=== PATIENT | male | born 1960 | race Caucasian/White ===

== ENCOUNTER 2018-09-20 11:48 | Outpatient (REF) | payer SELFPAY ==
[2018-09-20 21:25] LABS: Anion Gap 7.9 mmol/L (3-11); BUN 27 mg/dL (7-18); CO2 29.1 mmol/L (21.0-32.0); CREATININE 0.98 mg/dL (0.70-1.30); Calcium 9.1 mg/dL (8.5-10.1); Chloride 104 mmol/L (98-107); Cholesterol 202 mg/dL (50-200); Glucose 112 mg/dL (70-100); HDL Cholesterol 35 mg/dL (40-60); LDL CHOLESTEROL 146 mg/dL (<100); Potassium 3.9 mmol/L (3.5-5.1); Sodium 141 mmol/L (136-145); Triglyceride 160 mg/dL (30-150)
[2018-09-20 21:34] LABS: Hemoglobin A1C 5.5 % (4.5-6.2)
== END 2018-09-20 12:08 ==
LOC: NCHCN 11:48
PROVIDERS: PCP Family Medicine; Visit Provider Family Medicine
DX: I10 Essential (primary) hypertension (principal); E78.2 Mixed hyperlipidemia; R73.01 Impaired fasting glucose
CPT/HCPCS: 80048; 80061; 83721; 83036

== ENCOUNTER 2019-12-13 17:23 | Outpatient (REF) | payer SELFPAY ==
[2019-12-13 21:46] LABS: ALT 35 U/L (16-63); AST 18 U/L (15-37); Albumin 4.1 g/dL (3.4-5.0); Alkaline Phosphatase 93 U/L (46-116); Anion Gap 5.4 mmol/L (3-11); BUN 21 mg/dL (7-18); Bilirubin, Total 0.4 mg/dL (0.2-1.0); CO2 31.6 mmol/L (21.0-32.0); CREATININE 0.92 mg/dL (0.70-1.30); Calcium 9.2 mg/dL (8.5-10.1); Calculated LDL 108 mg/dL (<100); Chloride 104 mmol/L (98-107); Cholesterol 181 mg/dL (<200); Glucose 88 mg/dL (74-106); HDL Cholesterol 29 mg/dL (40-60); Sodium 141 mmol/L (136-145); Total Protein 7.1 g/dL (6.4-8.2); Triglyceride 220 mg/dL (<150)
== END 2019-12-13 17:43 ==
LOC: NCHCN 17:23
PROVIDERS: PCP Family Medicine; Visit Provider Family Medicine
DX: R73.01 Impaired fasting glucose (principal); E78.2 Mixed hyperlipidemia; I10 Essential (primary) hypertension; E66.9 Obesity, unspecified; Z00.00 Encounter for general adult medical examination without abnormal findings
CPT/HCPCS: 80053; 80061

== ENCOUNTER 2021-03-11 11:26 | Outpatient (REF) | payer SELFPAY ==
[2021-03-11 14:13] LABS: ALT 39 U/L (16-63); AST 16 U/L (15-37); Alkaline Phosphatase 99 U/L (46-116); Anion Gap 8.2 mmol/L (3-11); BUN 20 mg/dL (7-18); Bilirubin, Total 0.4 mg/dL (0.2-1.0); CO2 29.8 mmol/L (21.0-32.0); CREATININE 1.1 mg/dL (0.70-1.30); Calculated LDL 111 mg/dL (<100); Chloride 106 mmol/L (98-107); Cholesterol 184 mg/dL (<200); Glucose 82 mg/dL (74-106); HDL Cholesterol 33 mg/dL (40-60); Sodium 144 mmol/L (136-145); Total Protein 7.2 g/dL (6.4-8.2); Triglyceride 204 mg/dL (<150)
[2021-03-11 14:26] LABS: Hemoglobin A1C 5.4 % (<5.7)
== END 2021-03-11 11:27 | disposition home or self-care (01) ==
LOC: NCHCN 11:26
PROVIDERS: PCP Family Medicine; Visit Provider Family Medicine
DX: Z00.00 Encounter for general adult medical examination without abnormal findings (principal); E78.2 Mixed hyperlipidemia; I10 Essential (primary) hypertension; E66.9 Obesity, unspecified; Z13.1 Encounter for screening for diabetes mellitus
CPT/HCPCS: 80053; 80061; 83036

== ENCOUNTER 2022-03-05 13:00 | Outpatient (REF) | payer SELFPAY ==
[2022-03-05 16:37] LABS: ALT 34 U/L (16-63); AST 20 U/L (15-37); Albumin 4.1 g/dL (3.4-5.0); Alkaline Phosphatase 92 U/L (46-116); Anion Gap 6.2 mmol/L (3-11); BUN 21 mg/dL (7-18); Bilirubin, Total 0.4 mg/dL (0.2-1.0); CO2 30.8 mmol/L (21.0-32.0); Chloride 105 mmol/L (98-107); Glucose 99 mg/dL (74-106); Potassium 4.1 mmol/L (3.5-5.1); Sodium 142 mmol/L (136-145); Total Protein 7.1 g/dL (6.4-8.2)
== END 2022-03-05 13:01 | disposition home or self-care (01) ==
LOC: NCHCN 13:00
PROVIDERS: PCP Family Medicine; Visit Provider Family Medicine
DX: Z00.00 Encounter for general adult medical examination without abnormal findings (principal); I10 Essential (primary) hypertension
CPT/HCPCS: 80053